=== PATIENT | male | born 1960 | race Caucasian/White ===

== ENCOUNTER 2024-07-16 07:38 | Emergency (ER) | payer MEDICARE ==
[~2024-07-16] VITALS: Ht 167.6 cm; Wt 65.6 kg
[2024-07-16] MEDS ORDERED: TRES1INJ2 SC (08:14)
[2024-07-16] MEDS ORDERED: GLIM2TAB29 PO (08:14)
[2024-07-16] MEDS ORDERED: JANU100T PO (08:14)
[2024-07-16] MEDS ORDERED: DULO1CAP6 PO (08:14)
[2024-07-16] MEDS ORDERED: PRAV20TA2 PO (08:14)
[2024-07-16] MEDS ORDERED: TAMS1CAP17 PO (08:14)
[2024-07-16 08:44] LABS: HEMATOCRIT 46.5 % (42.0-52.0); HEMOGLOBIN 16.1 g/dl (13.5-17.5); MEAN CORPUSCULAR HEMOGLOBIN 32.3 pg (27.0-33.0); MEAN CORPUSCULAR HGB CONC 34.6 g/dl (32.0-36.5); MEAN CORPUSCULAR VOLUME 93.4 fl (80.0-96.0); PLATELET COUNT, AUTOMATED 318 10^3/uL (150-450); RED BLOOD COUNT 4.98 10^6/uL (4.30-6.10); WHITE BLOOD COUNT 9.7 10^3/uL (4.0-10.0)
[2024-07-16 09:09] LABS: AMPHETAMINES LEVEL URINE NEGATIVE (NEGATIVE); BARBITURATES URINE NEGATIVE (NEGATIVE); BENZODIAZEPINES URINE NEGATIVE (NEGATIVE); COCAINE METABOLITE URINE NEGATIVE (NEGATIVE)
[2024-07-16 09:10] LABS: CANNABINOIDS URINE NEGATIVE (NEGATIVE); METHADONE URINE NEGATIVE (NEGATIVE); OPIATES URINE NEGATIVE (NEGATIVE); PHENCYCLIDINE URINE NEGATIVE (NEGATIVE)
[2024-07-16 09:13] LABS: ALBUMIN 3.6 G/DL (3.2-5.2); ALKALINE PHOSPHATASE 56 U/L (40-129); ALT/SGPT 35 U/L (7.0-40); AST/SGOT 31 U/L (<34); BILIRUBIN,DIRECT 0.1 MG/DL (<0.4); BILIRUBIN,TOTAL 0.4 MG/DL (0.3-1.2); BLOOD UREA NITROGEN 9 MG/DL (9-23); CALCIUM LEVEL 9.6 MG/DL (8.3-10.6); CARBON DIOXIDE LEVEL 26 MMOL/L (20-31); CHLORIDE LEVEL 104 MMOL/L (98-107); CREATININE FOR GFR 0.93 MG/DL (0.70-1.30); GLOMERULAR FILTRATION RATE > 60.0 (>49); GLUCOSE, FASTING 142 MG/DL (74-106); POTASSIUM SERUM 4.3 MMOL/L (3.5-5.1); SALICYLATE LEVEL < 3.0 MG/DL (<30); SODIUM LEVEL 138 MMOL/L (136-145)
[2024-07-16 09:16] LABS: THYROID STIMULATING HORMONE 3.066 uIU/ML (0.55-4.78)
[2024-07-16 12:57] VITALS: BP 145/74; TEMP 96.8; O2SAT 100
== END 2024-07-16 13:00 | disposition home or self-care (01) ==
LOC: M ED 07:38
DX: F43.20 Adjustment disorder, unspecified (principal); E11.9 Type 2 diabetes mellitus without complications; Z79.4 Long term (current) use of insulin; Z79.899 Other long term (current) drug therapy